=== PATIENT | female | born 1965 | race Caucasian/White ===

== ENCOUNTER 2016-08-14 23:25 | Emergency (ER) | payer OTHER ==
[~2016-08-14] VITALS: Ht 170.2 cm; Wt 113.7 kg
[~2016-08-14 23:25] MED LIST: AZIT250T5 PO; BLOOD PRESSURE MEDICATION; CMBV14CC IH; CYCL5TAB11 PO; FLUO20CA42; HYDR-3881 PO; LOSA1TAB70 PO; PRED20TA PO
--- OUTSIDE RECORDS SUMMARY | 2016-08-14 23:29 | XMS REPORT | Summary of Care ---
Author Author Ry Maza M.D. Organization Unknown Address [address], [place] [id number] Phone Unavailable Care Team Providers Care Transport Tech Name Role Phone yR Maza M.D. Unavailable Unavailable Ry Maza PP Unavailable Unavailable Unavailable Functional Status Functional Status Health Issues Name Dates Details Functional status health issues are not documented Status: Cognitive Status Health Issues Name Dates Details Cognitive status health issues are not documented Status: Problems Name Dates Details Active medical history not documented Status: Medications Name Dates Details Estradiol 1 MG Oral Tablet take 1 tablet by mouth every day Quantity: 100 Refills: 0 Ry Maza M.D. Started 14-Sep-2015 Active Allergies and Adverse Reactions Name Dates Details Allergy history not documented Status: Procedures Procedure Dates Details Procedures not documented Immunization Name Dates Details Immunizations not documented Social History Smoking StatusUnknown if ever smoked Vital Signs Date Test Result Details No Known Vitals to report Results Date Description Value Details Results not documented Plan of Care Planned Observations Name Dates Details Planned Goals not documented Goal Planned Encounters Appointment; Provider: Ry Maza On 14:30 Instructions Instructions not documented Encounters No Encounter data documented Encounter Diagnosis: Problem not documented On 14-Sep-2015
[2016-08-14] MEDS ORDERED: PROMETHAZINE 25 MG/ML (PHENERGAN) 1 ML VIAL IM ONE (23:45)
[2016-08-14] MEDS ORDERED: HYDROmorphone 2 MG/ML (DILAUDID) 1 ML SYRINGE IM ONE (23:45)
[2016-08-14] MEDS ORDERED: ACHYD1T PO (23:57)
[2016-08-14] MEDS ORDERED: SMV10T PO (23:57)
[2016-08-14] MEDS ORDERED: ESTR0.5T PO (23:57)
[2016-08-14] MEDS ORDERED: CYCL10TA45 PO (23:57)
[2016-08-15] MEDS ORDERED: AMOXICILLIN/CLAVULANATE 875MG-125MG (AUGMENTIN) TABLET PO ONE (00:35)
[2016-08-15] MEDS ORDERED: AMOX1TAB12 PO (00:39)
[2016-08-15 00:48] VITALS: BP 112/58
--- NOTE | 2016-08-15 07:17 | Diagnostic Imaging Report ---
Clinical indication: Patient with migraines. Exam: Axial CT scan of brain performed without IV contrast. Sagittal and coronal reformatted images are created. Comparison: Head CT without IV contrast dated 01/16/2013. Findings: There is no evidence of acute cerebral infarct, intracranial hemorrhage, or gross mass effect. There is normal roberto-white matter distinction. The brain parenchymal volume appears appropriate for patient's age. There is no significant midline shift or herniation. There is no evidence of hydrocephalus. The basal cisterns are unremarkable. The skull, extracranial soft tissue, and orbits are unremarkable. There is incompletely imaged large amounts of air-fluid level in the left maxillary sinus and moderate consolidation in the left ethmoid sinus region. There is mild mucosal thickening involving the sphenoid sinus. Temporal bone structures show no significant abnormality. IMPRESSION: 1: Paranasal sinusitis with the left maxillary sinus affected the most. 2: Otherwise unremarkable CT scan of brain. I agree with [facility] report. Dictated by: Dictated on workstation # [id number]
== END 2016-08-15 00:46 | disposition home or self-care (01) ==
LOC: ED 23:27
DX: J01.00 Acute maxillary sinusitis, unspecified (principal); J01.20 Acute ethmoidal sinusitis, unspecified
CPT/HCPCS: 70450; 96372; 99282; J1170; J2550; 99283